=== PATIENT | male | born 1950 | race Caucasian/White ===

== ENCOUNTER 2018-06-28 16:48 | Emergency (ER) | payer OTHER ==
[~2018-06-28] VITALS: Ht 188 cm; Wt 81.7 kg
[~2018-06-28 16:48] MED LIST: ALLOPURINOL 10100 M1 PO; B-121000 MCG PO; C-10001000 M1 PO; CHOLESTEROL MED; COLCHICINE0.6 MG PO; DILAUDID 2 MG TA2 MG PO; FLOMAX PO; FLOMAX0.4 MG PO; GUAIFENESIN/COD10 M1 PO; HYDROCODON-ACE1 EAC7 PO; HYDROCODONE-AP1 EAC6 PO; IBUPROFEN200 M2 PO; LISINOPRIL20 MG PO; MEDROLDOSEPACK PO; NORCO 5-325 TA1 EACH PO; PERCOCET 5-3251 EACH PO; VITAMIN A10000 UNI3 PO; XARELTO15 MG PO; XARELTO20 MG PO; ZESTRIL2.5 MG PO; ZOFRAN4 MG PO
[2018-06-28 18:49] VITALS: BP 104/63
== END 2018-06-28 21:00 | disposition home or self-care (01) ==
LOC: ER 16:48
DX: S61.012A Laceration without foreign body of left thumb without damage to nail, initial encounter (principal); G47.30 Sleep apnea, unspecified; Z87.442 Personal history of urinary calculi; Z86.718 Personal history of other venous thrombosis and embolism; W26.0XXA Contact with knife, initial encounter; Y92.89 Other specified places as the place of occurrence of the external cause; Y93.89 Activity, other specified; Y99.8 Other external cause status